=== PATIENT | male | born 1990 | race Caucasian/White ===

== ENCOUNTER 2017-11-07 06:53 | Inpatient (IN) ==
--- NOTE | 2017-11-07 07:04 | Emergency Department Note ---
Disposition Clinical Impression: Suicidal ideation, Laceration Depression Qualifiers: Depression Type: unspecified Qualified Code(s): F32.9 - Major depressive disorder, single episode, unspecified Disposition: Admitted As Inpatient Condition: Fair Referrals: NONE,PCP [Primary Care Provider] - Andrei Up [Family Provider] - Forms: ED Satisfaction Letter Time of Disposition: 07:09 Psych HPI - General Chief Complaint: ED Psychiatric Symptoms Stated Complaint: si Time Seen by Provider: 11/07/17 07:02 Source: patient, EMS Mode of arrival: EMS Limitations: no limitations Nursing Notes Reviewed: Yes Vital Signs Reviewed: Yes - History of Present Illness HPI Narrative: Patient states he has been using methamphetamine. He feels depressed and suicidal. He self-inflicted lacerations to the flexor aspect of his left wrist Pt complaint: suicidal ideation, feels depressed Onset (ago): day(s) Duration: constant History of similar episodes: Yes Improves with: none Worsens with: drug use Context: recent drug abuse Associated Psychiatric Symptoms: depression, suicidal ideation Associated symptoms: Reports: denies other symptoms Traumatic symptoms: extremity injury (Self-inflicted abrasions to left forearm/ wrist) Self harm or harm to others: admits thoughts of self harm - Related Data Home Medications Medication Instructions Recorded Confirmed No Known Home Drugs 11/07/17 11/07/17 Allergies Allergy/AdvReac Type Severity Reaction Status Date / Time No Known Allergies Allergy Verified 11/07/17 10:00 All systems ED: reviewed and negative except as stated. Constitutional: Reports: as per HPI Eyes: Reports: as per HPI ENT ED: Reports: as per HPI Cardiovascular: Reports: as per HPI Respiratory: Reports: as per HPI Gastrointestinal: Reports: as per HPI Genitourinary: Reports: as per HPI Musculoskeletal: Reports: as per HPI Integumentary: Reports: other Neurological: Reports: as per HPI Psychiatric: Reports: depression, suicidal thoughts Endocrine: Reports: as per HPI Hematological/Lymphatic: Reports: as per HPI Allergic/Immunologic: Reports: as per HPI Past Medical History - Past Medical History Source: patient Medical history: Reports: hepatitis Psychiatric history: Reports: prior suicide attempt - Social History Smoking Status: Current every day smoker Smokeless Tobacco Status: No Alcohol use: Reports: none Drug use: Reports: methamphetamine, IV Drug Use Physical Exam Flat affect - General Limitations: no limitations General appearance: alert, appears intoxicated - Head Head exam: atraumatic - Eye Eye exam: Present: normal appearance - ENT ENT exam: normal exam - Neck Neck exam: Present: normal inspection, full ROM - Chest Chest inspection: Present: normal inspection, symmetric chest wall rise - Respiratory Respiratory exam: Present: normal lung sounds bilaterally - Cardiovascular Cardiovascular exam: Present: regular rate, normal rhythm - Rectal Exam Rectal exam: Present: deferred - Extremities Exam Extremities exam: Present: other (Multiple superficial horizontally oriented to the flexor surface of left wrist. The deepest extends to the skin and subcutaneous tissue without active bleeding.-1 cm in length. No exposed tendons or neurovascular structures) - Neurological Exam Neurological exam: Present: alert, oriented X3, CN II-XII intact, other (Ataxic when ambulating to the bathroom) - Psychiatric Psychiatric exam: Present: flat affect - Skin Skin exam: Present: warm, dry, other (See above) Course Course Narrative: Patient presents feeling depressed and suicidal. He has self-inflicted abrasions/laceration to his left wrist. Suture repair to be performed by the medical student under my supervision. I will attempt to clear the patient medically for behavioral evaluation. Tetanus is already up-to-date Vital Signs Temperature 97.9 F 11/07/17 06:58 Pulse Rate 94 11/07/17 06:58 Respiratory Rate 20 11/07/17 06:58 Blood Pressure 140/85 11/07/17 06:58 O2 Sat by Pulse Oximetry 100 11/07/17 06:58 Temperature 97.9 F 11/07/17 06:58 Pulse Rate 94 11/07/17 06:58 Respiratory Rate 20 11/07/17 06:58 Blood Pressure 140/85 11/07/17 06:58 O2 Sat by Pulse Oximetry 100 11/07/17 06:58 Oxygen Delivery Oxygen Delivery Room Air Procedures - Laceration Laceration 1 Site: upper extremity Side (If applicable): left Description: linear Depth: simple, single layer Local Anesthetic: lidocaine 1% Pre-repair: irrigated extensively Skin layer closed with: nylon Size: 4-0 Number of sutures/antoni: 2 Technique: simple, interrupted (Sutured by the medical student under my supervision) Psych - Lab Data Lab results reviewed: Yes I reviewed the patient's lab results. Result diagrams: 11/07/17 07:00 11/07/17 07:00 Lab Results 11/07/17 11/07/17 11/07/17 Range/Units 07:00 07:00 07:37 WBC 9.9 (4.3-11.1) K/mcL RBC 5.21 (4.19-5.50) M/mcL Hgb 15.1 (12.9-16.9) g/dL Hct 43.9 (37.5-50.1) % MCV 84.3 (83.0-100.0) fL MCH 29.0 (28.0-33.3) pg MCHC 34.4 (31.6-35.5) g/dL RDW 12.0 (11.5-14.5) % Plt Count 229 (140-400) K/mcL MPV 11.3 (9.4-12.4) fL Immature Gran % 0.4 (0-4) % Seg Neutrophils % 57.4 % Lymphocytes % 29.2 % Monocytes % 5.4 % Eosinophils % 6.8 % Basophils % 0.8 % Neutrophils # 5.7 (1.6-8.9) K/mcL Lymphocytes # 2.9 (0.6-4.6) K/mcL Monocytes # 0.5 (0.0-1.3) K/mcL Eosinophils # 0.7 H (0.0-0.6) K/mcL Basophils # 0.1 (0.0-0.2) K/mcL Sodium 137 (136-145) mEq/L Potassium 3.9 (3.5-5.1) mEq/L Chloride 105 (98-107) mEq/L Carbon Dioxide 24 (23-29) mEq/L BUN 14 (6-20) mg/dL Creatinine 0.97 (0.70-1.30) mg/dL Est GFR ( Amer) > 60 (> 60) Est GFR (Non-Af Amer) > 60 (> 60) BUN/Creatinine Ratio 14 (6-26) Glucose 150 H (70-105) mg/dL Calculated Osmolality 287 (280-300) Calcium 9.3 (8.6-10.3) mg/dL Total Bilirubin 0.6 (0.3-1.0) mg/dL AST 42 H (13-39) Units/L ALT 91 H (7-52) Units/L Alkaline Phosphatase 83 (34-104) Units/L Serum Total Protein 6.8 (6.4-8.9) g/dL Albumin 4.2 (3.5-5.7) g/dL Globulin 2.6 (2.4-3.5) g/dL Albumin/Globulin Ratio 1.6 (1.1-2.2) Salicylates < 2.5 L (15.0-30.0) mg/dL Urine Opiates Screen Negative (Ebddza=037) ng/mL Acetaminophen < 10 L (10-20) mcg/mL Ur Barbiturates Screen Negative (Cdpnbt=507) ng/mL Ur Phencyclidine Scrn Negative (Cutoff=25) ng/mL Ur Amphetamines Screen Positive H (Xuwtxr=4280) ng/mL U Benzodiazepines Scrn Negative (Lcxlwb=041) ng/mL Urine Cocaine Screen Negative (Cutoff= 300) ng/mL U Marijuana (THC) Screen Negative (Cutoff = 50) ng/mL Ur Drug Screen Interp See Below Ethyl Alcohol < 10 (Less than 10) mg/dL Psychiatric Medical Clearance - Medical Clearance Checklist Medical History: No Social History Section defined Current Vitals: Last Vital Signs Temp 97.9 F 11/07/17 06:58 Pulse 94 11/07/17 06:58 Resp 20 11/07/17 06:58 BP 140/85 11/07/17 06:58 Pulse Ox 100 11/07/17 06:58 Psychiatric Lab Panel: Drug Levels and Toxicity 11/07/17 11/07/17 07:00 07:37 Urine Opiates Screen Negative Acetaminophen < 10 L Ur Barbiturates Screen Negative Ur Phencyclidine Scrn Negative Ur Amphetamines Screen Positive H U Benzodiazepines Scrn Negative Urine Cocaine Screen Negative U Marijuana (THC) Screen Negative Ethyl Alcohol < 10 Abnormal Labs: Abnormal lab results Eosinophils # 0.7 K/mcL (0.0-0.6) H 11/07/17 07:00 Glucose 150 mg/dL (70-105) H 11/07/17 07:00 AST 42 Units/L (13-39) H 11/07/17 07:00 ALT 91 Units/L (7-52) H 11/07/17 07:00 Salicylates < 2.5 mg/dL (15.0-30.0) L 11/07/17 07:00 Acetaminophen < 10 mcg/mL (10-20) L 11/07/17 07:00 Ur Amphetamines Screen Positive ng/mL (Juxpho=1831) H 11/07/17 07:37 Statement of Medical Clearance: I have evaluated the patient, reviewed diagnostic information, and certify that the patient's medical condition is sufficiently stable that transfer to the psychiatric unit does not pose a significant risk of deterioration.
[2017-11-07] MEDS ORDERED: Lidocaine 1% 20 ML MDV INFILT ONE (07:05)
[2017-11-07 07:25] LABS: Basophils # 0.1 K/mcL (0.0-0.2); Basophils % 0.8 %; Eosinophils # 0.7 K/mcL (0.0-0.6); Eosinophils % 6.8 %; Hematocrit 43.9 % (37.5-50.1); Hemoglobin 15.1 g/dL (12.9-16.9); Immature Granulocytes % 0.4 % (0-4); Lymphocytes # 2.9 K/mcL (0.6-4.6); Lymphocytes % 29.2 %; Mean Corpuscular HGB Conc 34.4 g/dL (31.6-35.5); Mean Corpuscular Volume 84.3 fL (83.0-100.0); Mean Platelet Volume 11.3 fL (9.4-12.4); Monocytes # 0.5 K/mcL (0.0-1.3); Monocytes % 5.4 %; Neutrophils # 5.7 K/mcL (1.6-8.9); Platelet Count 229 K/mcL (140-400); Red Blood Count 5.21 M/mcL (4.19-5.50); Segmented Neutrophils % 57.4 %
[2017-11-07 08:14] LABS: Acetaminophen < 10 mcg/mL (10-20); Alanine Aminotransferase 91 Units/L (7-52); Albumin 4.2 g/dL (3.5-5.7); Albumin/Globulin Ratio 1.6 (1.1-2.2); Alkaline Phosphatase 83 Units/L (34-104); Aspartate Amino Transferase 42 Units/L (13-39); Bilirubin,Total 0.6 mg/dL (0.3-1.0); Calcium 9.3 mg/dL (8.6-10.3); Carbon Dioxide 24 mEq/L (23-29); Chloride 105 mEq/L (98-107); Ethanol < 10 mg/dL (Less than 10); Globulin 2.6 g/dL (2.4-3.5); Glucose 150 mg/dL (70-105); Potassium 3.9 mEq/L (3.5-5.1); Salicylate < 2.5 mg/dL (15.0-30.0); Sodium 137 mEq/L (136-145); Total Protein 6.8 g/dL (6.4-8.9); eGFR For Non-African Americans > 60 (> 60)
[2017-11-07 08:14] LABS: Amphetamine Screen,Urine Positive ng/mL (Cutoff=1000); Barbiturate Screen,Urine Negative ng/mL (Cutoff=200); Benzodiazepines Screen,Urine Negative ng/mL (Cutoff=200); Cannabinoid Screen,Urine Negative ng/mL (Cutoff = 50); Cocaine Screen,Urine Negative ng/mL (Cutoff= 300); Opiate Screen,Urine Negative ng/mL (Cutoff=300); Phencyclidine Screen,Urine Negative ng/mL (Cutoff=25)
[2017-11-07 09:10] LABS: BUN/Creatinine Ratio 14 (6-26); Blood Urea Nitrogen 14 mg/dL (6-20); Osmolality,Calculated 287 (280-300)
[2017-11-07] MEDS ORDERED: Mag Hydrox/Al Hydrox/Simeth 30 ML UDC PO PRN (11:16)
[2017-11-07] MEDS ORDERED: MOM Conc 10 ML UD.LIQ PO PRN (11:16)
[2017-11-07] MEDS ORDERED: *HR* LORazepam 2 MG/ML VIAL IM PRN (11:16)
[2017-11-07] MEDS ORDERED: Haloperidol Lactate 5 MG/ML VIAL IM PRN (11:16)
[2017-11-07] MEDS ORDERED: traZODone 50 MG TABLET PO PRN (11:16)
[2017-11-07] MEDS ORDERED: Ibuprofen 400 MG TABLET PO PRN (11:16)
[2017-11-07] MEDS ORDERED: *HR* LORazepam 1 MG TABLET PO PRN (11:16)
[2017-11-07] MEDS: Nicotine 21 MG PATCH.TD24 TD SCH (13:13)
[2017-11-07] MEDS: FLUoxetine 20 MG CAPSULE PO SCH (13:15)
[2017-11-08] MEDS: Nicotine 21 MG PATCH.TD24 TD SCH (11:06)
[2017-11-08] MEDS: FLUoxetine 20 MG CAPSULE PO SCH (11:06)
--- NOTE | 2017-11-08 13:25 | Psychiatry Progress Note ---
Date of Encounter: 11/08/17 Time of Encounter: 13:00 Subjective Interval history: D the patient is a 27-year-old single white male from [facility]. 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 History of present illness. The patient reports that he said a problem methamphetamine and drugs for a long period of time. He says that he had been abstinent from methamphetamine for 2-1/2 years and more recently 17 months. He just decided to become clean first episode with willpower alone. Then for the 17 months he attended [facility]. He was doing well but had some stressors and relapse 10 times is recent period of time. The patient was working but then he no longer had arrived he has no license. Recently he saw a son who is 7 years old but the son's mother has a TPL against the patient. This C by mouth is 4 years running for a total of 5. She got upset and said that he forced the son to see him. The patient was most recently in custodial for 69 days. The patient has 5 custodial stays theft and receiving stolen property violating protection orders and drug use and burglary. The patient has a court date Friday he has not business practices officer. With reporting probation he has 113 days of her head. The court hearing is for domestic dispute. Psychiatric hospitalizations none previous suicide attempts none. The patient went to rehabilitation he went to a program called [facility] in [place] for 3-5 days it was at this time that his friend hung himself in 2015. The patient looks at this bolus of increasing that his daughter started to come and world around that time. Patient denies previous suicide attempts. In 2013 the patient had a problem with heroin in the past these had problems marijuana and cocaine alcohol. The patient graduated from high school but describes himself as illiterate. Past medical history: Surgeries appendix wisdom teeth removed illness right femur was broken NKDA no prescribed medicines. The patient has a PCP in the [facility]. Family history his mother goes to the [facility] is a brother with a drug problem. His brother is in [place] [facility] for burglary. There is no family history of alcohol or suicide. Social history patient lives with his mother and dad. He used to have a girlfriend they have a 6 day old child. The patient has 3 children with 3 baby momma's. The patient worked for 3 weeks at a construction company. The patient had his daughter taken away and this was the major stressor. This was because the patient's girlfriend was using methamphetamine. When the patient was asked about physical symptoms he did not report any Review of systems. Patient describes his suicide attempt this way I got down the slight amount of I was just high amounts when I cut my wrist. Patient says he would use so much meth that he would fall L fall down or passout head shake of the grown. He reports no recent abuse of marijuana and cocaine or alcohol. He feels that he can maintain sobriety using people Places and things Results - Vital Signs Vital Signs: Temp Pulse Resp BP Pulse Ox 97.5 F L 81 16 115/78 100 11/08/17 09:00 11/08/17 09:00 11/08/17 09:00 11/08/17 09:00 11/07/17 06:58 Consult Discharge Plan - Plan Referrals: [facility] [Outside] (The above appointment is with Abbi Bush , counselor at [facility]. Your first appointment will be very thorough and the total appointment time will take between two and three hours. You will be completing paperwork, meeting with a counselor and a nurse, and developing a treatment plan. You will receive follow- up appointments for on-going services, which could include community support, mental health and substance abuse counseling, groups/partial hospitalization programming and medication assisted treatment. You are also scheduled to see Taylor Adams on 11/25/2017 at 2:00 PM for outpatient psychiatric assessment and medication management services. You must keep your intake appointment on 11/13/2017 in order to see the psychiatric provider on . Please bring your insurance card and photo ID with you to your first visit to the clinic.) Psychiatry Exam - Constitutional Vitals: Temp Pulse Resp BP Pulse Ox 97.5 F L 81 16 115/78 100 11/08/17 09:00 11/08/17 09:00 11/08/17 09:00 11/08/17 09:00 11/07/17 06:58
--- NOTE | 2017-11-08 13:28 | Psychiatry History & Physical ---
Date of Encounter: 11/08/17 Time of Encounter: 13:00 History of Present Illness Patient Stated Chief Complaint: I cut my wrist Medicare Admission Attestation: For traditional Medicare patients the provided hospital inpatient services are reasonable and necessary and in the case of services not specified as inpatient -only under 42 CFR 419.22 (n), that they are appropriately provided as inpatient services in accordance 42 CFR 412.3. For Critical Access Hospital the patient may reasonably be expected to be discharged or transferred to a hospital within 96 hours after admission to the Critical Access Hospital. Admitted From: Emergency Dept History of Present Illness: Mr. Del Angel is a 27 year old male ; a 27-year-old single white male from [facility]. Chief complaint "relations manager came to my house, my wrist Slit, I said that I would go to the hospital. History of present illness. The patient reports that he said a problem methamphetamine and drugs for a long period of time. He says that he had been abstinent from methamphetamine for 2-1/2 years and more recently 17 months. He just decided to become clean first episode with willpower alone. Then for the 17 months he attended [facility]. He was doing well but had some stressors and relapse 10 times is recent period of time. The patient was working but then he no longer had arrived he has no license. Recently he saw a son who is 7 years old but the son's mother has a TPL against the patient. This C by mouth is 4 years running for a total of 5. She got upset and said that he forced the son to see him. The patient was most recently in senior care for 69 days. The patient has 5 senior care stays theft and receiving stolen property violating protection orders and drug use and burglary. The patient has a court date Friday he has not patient transport officer. With reporting probation he has 113 days of her head. The court hearing is for domestic dispute. Psychiatric hospitalizations none previous suicide attempts none. The patient went to rehabilitation he went [facility] a [facility] in [place] for 3-5 days it was at this time that his friend hung himself in 2015. The patient looks at this bolus of increasing that his daughter started to come and world around that time. Patient denies previous suicide attempts. In 2013 the patient had a problem with heroin in the past these had problems marijuana and cocaine alcohol. The patient graduated from high school but describes himself as illiterate. Past medical history: Surgeries appendix wisdom teeth removed illness right femur was broken NKDA no prescribed medicines. The patient has a PCP in the [facility]. Family history his mother goes to the [facility] clinic is a brother with a drug problem. His brother is in [place] [facility] for burglary. There is no family history of alcohol or suicide. Social history patient lives with his mother and dad. He used to have a girlfriend they have a 6 day old child. The patient has 3 children with 3 baby momma's. The patient worked for 3 weeks at a [employer] company. The patient had his daughter taken away and this was the major stressor. This was because the patient's girlfriend was using methamphetamine. When the patient was asked about physical symptoms he did not report any Review of systems. Patient describes his suicide attempt this way I got down the slight amount of I was just high amounts when I cut my wrist. Patient says he would use so much meth that he would fall L fall down or passout head shake of the grown. He reports no recent abuse of marijuana and cocaine or alcohol. He feels that he can maintain sobriety using people Places and things Past Med Surg Social Fam HX - Past Medical History Source: patient Medical history: hepatitis, other - Past Psychiatric History Psychiatric history: Reports: other Family psychiatric history: Yes Family History of Suicide: None - Past Surgical History Surgical History: appendectomy, orthopedic, other - Social History Smoking Status: Current every day smoker Smokeless Tobacco Status: No Alcohol use: none Drug use: methamphetamine, IV Drug Use Occupational status: previously employed Current living situation: Home - Independent Activity Level: Independent ambulation Recent Out of Country Travel Within the Last 8 Weeks: No Exposure or Possible Exposure to Illness During Travel: No - Family History Mother Adopted: [place]: Gloria Age: 60 Living Status: Still Living Hx Family Cardiac Disorders: Yes Hx Family Respiratory Disorders: No Hx Family Cancer: No Hx Family GI Disorders: No Hx Family Genitourinary Disorders: No Hx Family Endocrine Disorder: Yes Hx Family Musculoskeletal Disorders: Yes Hx Family Neuromuscular Disorders: No Hx Family Neurologic Disorders: No Hx Family HEENT Disorders: No Hx Family Autoimmune Disorders: No Hx Family Reproductive Disorders: No Hx Family Psychosocial Disorders: No Hx Family Medical Disorders: No Medications & Allergies No Known Home Drugs 11/07/17 [History] 3 Allergy/AdvReac Type Severity Reaction Status Date / Time No Known Allergies Allergy Verified 11/07/17 10:00 Review of Systems Constitutional: Denies: fever, chills, weakness, weight change Eyes: Denies: eye pain, vision change Ears, Nose, Throat: Denies: ear pain, throat pain, dental pain, hearing loss, congestion Cardiovascular: Denies: chest pain, palpitations, dyspnea on exertion Respiratory: Denies: cough, dyspnea, wheezes Gastrointestinal: Denies: abdominal pain, nausea, vomiting, diarrhea, constipation Genitourinary male: Denies: urgency, dysuria, frequency, genital lesions Musculoskeletal: Denies: joint swelling, joint pain Integumentary: Denies: rash, lesions, pruritus Neurological: Denies: headache, weakness, numbness, memory loss Psychiatric: Reports: depression, suicidal ideation Endocrine: Denies: fatigue, heat or cold intolerance Hematologic/Lymphatic: Denies: easy bruising, lymphadenopathy Allergic/Immunologic: Denies: urticaria, itchy eyes Exam - HEENT Head exam IM: Present: atraumatic Eye exam IM: Present: EOMI, normal appearance, PERRL ENT exam IM: Present: normal exam - Neurological Neurological exam: Present: CN II-XII intact - Respiratory Respiratory exam IM: Present: CTAB - GI/Abdominal GI/Abdominal exam IM: Present: normal bowel sounds, soft. Absent: tenderness - Extremities Extremities exam IM: Present: full ROM - Skin Skin exam IM: Present: dry, warm - Constitutional Vitals: Temp Pulse Resp BP Pulse Ox 97.5 F L 81 16 115/78 100 11/08/17 09:00 11/08/17 09:00 11/08/17 09:00 11/08/17 09:00 11/07/17 06:58 General appearance: age & developmentally appropriate, well-groomed, well- nourished - Musculoskeletal Gait: normal Station: relaxed Strength & Tone: normal for patient - Psychiatric Patient Orientation: Yes Person, Yes Time, Yes Place Level of alertness: Alert Behavior: calm, cooperative Psychomotor activity: Normal Eye Contact: Maintains Eye Contact Mood Description: Depressed Affect description: congruent with mood, dysphoric Speech Volume: Normal Speech pattern: normal rate, normal rhythm, normal tone, fluent, spontaneous Language & Vocabulary: consistent with education Thought Process: Linear, Goal Oriented Thought Content: Yes Suicidal ideation, No Homicidal ideation, No Overt delusions, Yes Guilt Perceptual Disturbances: No Auditory hallucinations, No Visual hallucinations Attention Span Ability: Capable of Focused Attention Memory Description: Grossly Intact Patient Reliability: Reliable Historian Fund of knowledge: Yes abstraction ability, Yes average, Yes aware of current events Intelligence Estimate: Average Judgment: Limited Insight: Minimal Results - Labs Labs: Laboratory Last Values WBC 9.9 K/mcL (4.3-11.1) 11/07/17 07:00 RBC 5.21 M/mcL (4.19-5.50) 11/07/17 07:00 Hgb 15.1 g/dL (12.9-16.9) 11/07/17 07:00 Hct 43.9 % (37.5-50.1) 11/07/17 07:00 MCV 84.3 fL (83.0-100.0) 11/07/17 07:00 MCH 29.0 pg (28.0-33.3) 11/07/17 07:00 MCHC 34.4 g/dL (31.6-35.5) 11/07/17 07:00 RDW 12.0 % (11.5-14.5) 11/07/17 07:00 Plt Count 229 K/mcL (140-400) 11/07/17 07:00 MPV 11.3 fL (9.4-12.4) 11/07/17 07:00 Immature Gran % 0.4 % (0-4) 11/07/17 07:00 Seg Neutrophils % 57.4 % 11/07/17 07:00 Lymphocytes % 29.2 % 11/07/17 07:00 Monocytes % 5.4 % 11/07/17 07:00 Eosinophils % 6.8 % 11/07/17 07:00 Basophils % 0.8 % 11/07/17 07:00 Neutrophils # 5.7 K/mcL (1.6-8.9) 11/07/17 07:00 Lymphocytes # 2.9 K/mcL (0.6-4.6) 11/07/17 07:00 Monocytes # 0.5 K/mcL (0.0-1.3) 11/07/17 07:00 Eosinophils # 0.7 K/mcL (0.0-0.6) H 11/07/17 07:00 Basophils # 0.1 K/mcL (0.0-0.2) 11/07/17 07:00 Sodium 137 mEq/L (136-145) 11/07/17 07:00 Potassium 3.9 mEq/L (3.5-5.1) 11/07/17 07:00 Chloride 105 mEq/L (98-107) 11/07/17 07:00 Carbon Dioxide 24 mEq/L (23-29) 11/07/17 07:00 BUN 14 mg/dL (6-20) 11/07/17 07:00 Creatinine 0.97 mg/dL (0.70-1.30) 11/07/17 07:00 Est GFR ( Amer) > 60 (> 60) 11/07/17 07:00 Est GFR (Non-Af Amer) > 60 (> 60) 11/07/17 07:00 BUN/Creatinine Ratio 14 (6-26) 11/07/17 07:00 Glucose 150 mg/dL (70-105) H 11/07/17 07:00 Calculated Osmolality 287 (280-300) 11/07/17 07:00 Calcium 9.3 mg/dL (8.6-10.3) 11/07/17 07:00 Total Bilirubin 0.6 mg/dL (0.3-1.0) 11/07/17 07:00 AST 42 Units/L (13-39) H 11/07/17 07:00 ALT 91 Units/L (7-52) H 11/07/17 07:00 Alkaline Phosphatase 83 Units/L (34-104) 11/07/17 07:00 Serum Total Protein 6.8 g/dL (6.4-8.9) 11/07/17 07:00 Albumin 4.2 g/dL (3.5-5.7) 11/07/17 07:00 Globulin 2.6 g/dL (2.4-3.5) 11/07/17 07:00 Albumin/Globulin Ratio 1.6 (1.1-2.2) 11/07/17 07:00 Salicylates < 2.5 mg/dL (15.0-30.0) L 11/07/17 07:00 Urine Opiates Screen Negative ng/mL (Dcavls=999) 11/07/17 07:37 Acetaminophen < 10 mcg/mL (10-20) L 11/07/17 07:00 Ur Barbiturates Screen Negative ng/mL (Zdmtin=133) 11/07/17 07:37 Ur Phencyclidine Scrn Negative ng/mL (Cutoff=25) 11/07/17 07:37 Ur Amphetamines Screen Positive ng/mL (Dbdpdl=1093) H 11/07/17 07:37 U Benzodiazepines Scrn Negative ng/mL (Mrkcmq=150) 11/07/17 07:37 Urine Cocaine Screen Negative ng/mL (Cutoff= 300) 11/07/17 07:37 U Marijuana (THC) Screen Negative ng/mL (Cutoff = 50) 11/07/17 07:37 Ur Drug Screen Interp See Below 11/07/17 07:37 Ethyl Alcohol < 10 mg/dL (Less than 10) 11/07/17 07:00 Assessment and Plan (1) Adjustment disorder with depressed mood Current visit: Yes Status: Acute Plan: Admit inpatient for safety and stabilization, Close observation, Suicide Precautions per unit protocol, Encourage participation in unit milieu, Monitor appetite, Secure weapons Risks, benefits, side effects, alternatives discussed w/pt: Yes Patient agreeable to treatment: Yes Plans for Post Hospital Care: Home Estimated Length of Stay (Days): 4 (2) Laceration Current visit: Yes Status: Acute Plan: Admit inpatient for safety and stabilization, Close observation, Secure weapons Risks, benefits, side effects, alternatives discussed w/pt: Yes Patient agreeable to treatment: Yes Plans for Post Hospital Care: Home (3) Suicidal ideation Current visit: Yes Status: Acute Plan: Admit inpatient for safety and stabilization, Secure weapons, Family/ Supportive other meeting Risks, benefits, side effects, alternatives discussed w/pt: Yes Patient agreeable to treatment: Yes Plans for Post Hospital Care: Home
[2017-11-08] MEDS: traZODone 50 MG TABLET PO SCH (20:04)
[2017-11-09] MEDS: FLUoxetine 20 MG CAPSULE PO SCH (10:32)
[2017-11-09] MEDS: Nicotine 21 MG PATCH.TD24 TD SCH (10:40)
--- NOTE | 2017-11-09 12:42 | Psychiatry Progress Note ---
Date of Encounter: 11/09/17 Time of Encounter: 12:30 Subjective Interval history: Patient was seen today and I talked to him briefly at lunch. He is a 27-year- old single white male. Chief complaint my stomach hurts I think too much. History of present illness the patient was seen in his room after lunchtime. He reported some belly pain and had been lying down. Rather than getting up to discuss the patient elected to remain in his room. The patient has tolerated the medications he notes no side effects the patient has had suicidal ideation but is previously said that he did not have intention to commit suicide and may have done this under the influence of intoxicants. The patient agreed to the treatment plan which does not change medicines today he says he tries to go to 1 group per day he plans to do this today. Review of Systems Psychiatric: Reports: depression, suicidal ideation Results - Vital Signs Vital Signs: Temp Pulse Resp BP Pulse Ox 97.9 F 73 16 112/72 100 11/09/17 09:00 11/09/17 09:00 11/09/17 09:00 11/09/17 09:00 11/07/17 06:58 Assessment and Plan (1) Adjustment disorder with depressed mood Current visit: Yes Status: Acute Plan: Continue hospitalization, Close observation, Suicide Precautions per unit protocol, Encourage participation in unit milieu Risks, benefits, side effects , alternatives discussed w/pt: Yes Patient agreeable to treatment: Yes (2) Laceration Current visit: Yes Status: Acute Plan: Secure weapons, Other Risks, benefits, side effects, alternatives discussed w/pt: Yes Patient agreeable to treatment: Yes (3) Suicidal ideation Current visit: Yes Status: Acute Plan: Group Therapy, Monitor sleep, Monitor appetite, Secure weapons Risks, benefits, side effects, alternatives discussed w/pt: Yes Patient agreeable to treatment: Yes Consult Discharge Plan - Plan Referrals: [facility] [Outside] (The above appointment is with Abbi Bush , counselor at [facility]. Your first appointment will be very thorough and the total appointment time will take between two and three hours. You will be completing paperwork, meeting with a counselor and a nurse, and developing a treatment plan. You will receive follow- up appointments for on-going services, which could include community support, mental health and substance abuse counseling, groups/partial hospitalization programming and medication assisted treatment. You are also scheduled to see Taylor Adams on 11/25/2017 at 2:00 PM for outpatient psychiatric assessment and medication management services. You must keep your intake appointment on 11/13/2017 in order to see the psychiatric provider on . Please bring your insurance card and photo ID with you to your first visit to the clinic.) Psychiatry Exam - Constitutional Vitals: Temp Pulse Resp BP Pulse Ox 97.9 F 73 16 112/72 100 11/09/17 09:00 11/09/17 09:00 11/09/17 09:00 11/09/17 09:00 11/07/17 06:58 General appearance: age & developmentally appropriate, well-groomed, well- nourished - Musculoskeletal Gait: normal Station: relaxed Strength & Tone: normal for patient - Psychiatric Patient Orientation: Yes Person, Yes Time, Yes Place Level of alertness: Alert Behavior: calm, cooperative Psychomotor activity: Normal Eye Contact: Maintains Eye Contact Mood Description: Depressed Affect description: congruent with mood, dysphoric Speech Volume: Normal Speech pattern: normal rate, normal rhythm, normal tone, fluent, spontaneous Language & Vocabulary: consistent with education Thought Process: Linear, Goal Oriented Thought Content: No Suicidal ideation, No Homicidal ideation, No Overt delusions Perceptual Disturbances: No Auditory hallucinations, No Visual hallucinations Attention Span Ability: Capable of Focused Attention Memory Description: Grossly Intact Patient Reliability: Reliable Historian Fund of knowledge: Yes abstraction ability, Yes aware of current events Intelligence Estimate: Average Judgment: Fair Insight: Partial
[2017-11-09] MEDS: traZODone 50 MG TABLET PO SCH (20:36)
[2017-11-10] MEDS: FLUoxetine 20 MG CAPSULE PO SCH (09:17)
[2017-11-10] MEDS: Nicotine 21 MG PATCH.TD24 TD SCH (09:18)
--- NOTE | 2017-11-10 14:16 | Psychiatry Progress Note ---
Date of Encounter: 11/10/17 Time of Encounter: 14:08 Subjective Interval history: Patient seen for follow-up. Case discussed with treatment team. Patient is reported medication compliant, partially attend groups, denies any problem with sleep or appetite. Denies suicidal ideation. He reports history of substance abuse and issues with his children by different women. He cut his wrists after his daughter was taken by children services. He reports medication are helpful. Review of Systems Psychiatric: Reports: depression, suicidal ideation Results - Vital Signs Vital Signs: Temp Pulse Resp BP Pulse Ox 98 F 71 16 126/79 100 11/10/17 09:00 11/10/17 09:00 11/10/17 09:00 11/10/17 09:00 11/07/17 06:58 Consult Discharge Plan - Plan Referrals: [facility] [Outside] (The above appointment is with Abbi Bush , counselor at [facility]. Your first appointment will be very thorough and the total appointment time will take between two and three hours. You will be completing paperwork, meeting with a counselor and a nurse, and developing a treatment plan. You will receive follow- up appointments for on-going services, which could include community support, mental health and substance abuse counseling, groups/partial hospitalization programming and medication assisted treatment. You are also scheduled to see Taylor Adams on 11/25/2017 at 2:00 PM for outpatient psychiatric assessment and medication management services. You must keep your intake appointment on 11/13/2017 in order to see the psychiatric provider on . Please bring your insurance card and photo ID with you to your first visit to the clinic.) Psychiatry Exam - Constitutional Vitals: Temp Pulse Resp BP Pulse Ox 98 F 71 16 126/79 100 11/10/17 09:00 11/10/17 09:00 11/10/17 09:00 11/10/17 09:00 11/07/17 06:58 General appearance: age & developmentally appropriate, well-groomed, well- nourished, average - Musculoskeletal Gait: normal Station: relaxed Strength & Tone: normal for patient - Psychiatric Patient Orientation: Yes Person, Yes Time, Yes Place Level of alertness: Alert Behavior: calm, cooperative Psychomotor activity: Slowed Eye Contact: Maintains Eye Contact Mood Description: Depressed Affect description: congruent with mood, constricted Speech Volume: Normal Speech pattern: normal rate, normal rhythm, normal tone, fluent, spontaneous Language & Vocabulary: consistent with education Thought Process: Linear, Goal Oriented Thought Content: No Suicidal ideation, No Homicidal ideation, No Overt delusions Perceptual Disturbances: No Auditory hallucinations, No Visual hallucinations Attention Span Ability: Capable of Focused Attention Memory Description: Grossly Intact Patient Reliability: Reliable Historian Fund of knowledge: Yes abstraction ability, Yes aware of current events Intelligence Estimate: Average Judgment: Limited Insight: Partial
[2017-11-10] MEDS: traZODone 50 MG TABLET PO SCH (23:21)
[2017-11-11] MEDS: Nicotine 21 MG PATCH.TD24 TD SCH (08:46)
[2017-11-11] MEDS: FLUoxetine 20 MG CAPSULE PO SCH (08:46)
[2017-11-11 08:54] VITALS: BP 121/73
--- NOTE | 2017-11-11 11:30 | Discharge Summary ---
Date of Encounter: 11/11/17 Time of Encounter: 11:26 Medications - Discharge Medications Prescriptions: FLUoxetine HCl [Prozac] 20 mg PO DAILY #30 capsule traZODone [TraZODone] 100 mg PO HS #60 tablet FLUoxetine HCl [Prozac] 20 mg PO DAILY #30 capsule 11/11/17 [Rx] traZODone [TraZODone] 100 mg PO HS #60 tablet 11/11/17 [Rx] 3 Allergy/AdvReac Type Severity Reaction Status Date / Time No Known Allergies Allergy Verified 11/07/17 10:00 Provider Date of admission: 11/07/17 11:08 Primary care physician: PCP NONE Discharging clinician: Ryan Matthews Psychiatry Exam - Constitutional Vitals: Temp Pulse Resp BP Pulse Ox 98.2 F 68 16 121/73 100 11/11/17 08:54 11/11/17 08:54 11/11/17 08:54 11/11/17 08:54 11/07/17 06:58 General appearance: age & developmentally appropriate, well-groomed, well- nourished, average - Musculoskeletal Gait: normal Station: relaxed Strength & Tone: normal for patient - Psychiatric Patient Orientation: Yes Person, Yes Time, Yes Place Level of alertness: Alert Behavior: calm, cooperative Psychomotor activity: Normal Eye Contact: Maintains Eye Contact Mood Description: Euthymic/stable Affect description: congruent with mood, full range Speech Volume: Normal Speech pattern: normal rate, normal rhythm, normal tone, fluent, spontaneous Language & Vocabulary: consistent with education Thought Process: Linear, Goal Oriented Thought Content: No Suicidal ideation, No Homicidal ideation, No Overt delusions Perceptual Disturbances: No Auditory hallucinations, No Visual hallucinations Attention Span Ability: Capable of Focused Attention Memory Description: Grossly Intact Patient Reliability: Reliable Historian Fund of knowledge: Yes abstraction ability, Yes aware of current events Intelligence Estimate: Average Judgment: Limited Insight: Partial Hospital Course Hospital course: Mr. Del Angel is a 27 year old male admitted from the emergency department for suicide ideation and cutting her wrists rests after children services took his daughter. For details admission please see H&P On the unit patient was started on fluoxetine 20 mg and trazodone 100 mg at bedtime in addition to other when necessary meds. Patient was reported to be self isolating attended very few groups, he was medication compliant, he did not interact much with peers and staff. He had and agitation episode after having a phone call to his family and was redirected. Prior to discharge patient was medically stable, denied any suicidal ideation, tolerated medication without side effects. His discharge plans and follow-up was completed by social work and shared with him and his family. Patient is discharged in stable condition. - Time Spent with Patient Total time spent providing and/or coordinating discharge services: Less than 30 minutes Assessment and Plan - Patient/Caregiver Discharge Instructions Activity: resume usual activities as tolerated Diet: regular diet - Follow up Plan Follow up with: [facility] [Outside] (The above appointment is with Abbi Bush , counselor at [facility]. Your first appointment will be very thorough and the total appointment time will take between two and three hours. You will be completing paperwork, meeting with a counselor and a nurse, and developing a treatment plan. You will receive follow- up appointments for on-going services, which could include community support, mental health and substance abuse counseling, groups/partial hospitalization programming and medication assisted treatment. You are also scheduled to see Taylor Adams on 11/25/2017 at 2:00 PM for outpatient psychiatric assessment and medication management services. You must keep your intake appointment on 11/13/2017 in order to see the psychiatric provider on . Please bring your insurance card and photo ID with you to your first visit to the clinic.) Functional capacity at discharge: independent ambulation Overall status at discharge: Stable Disposition: Home, Self-Care Quality - Multiple Antipsychotics Patient discharged on 2 or more antipsychotic medications: No Procedures - Procedures Procedures: Medication Management, Crisis Stabilization, Supportive Therapy, Group Therapy, Psychoeducational Therapy
== END 2017-11-11 13:00 | disposition home or self-care (01) | DRG 384 ==
LOC: EMEROO 06:53 → SUATTDRO 11:08 → 1ANU 11:08
PROVIDERS: ADMIT Psychiatry & Neurology Psychiatry; ATTEND Psychiatry & Neurology Psychiatry